=== PATIENT | female | born 2000 | race Two or more races ===

== ENCOUNTER 2025-02-14 17:39 | Emergency (ER) | payer OTHER ==
[~2025-02-14] VITALS: Ht 172.7 cm; Wt 77.0 kg
[2025-02-14 18:16] LABS: COVID AG,FIA SOURCE NASAL SWAB
[2025-02-14 18:57] LABS: INFLUENZA TYPE A NEGATIVE FOR TYPE A (NEGATIVE); INFLUENZA TYPE B NEGATIVE FOR TYPE B (NEGATIVE); SARS-COV2 (COVID) ANTIGEN,FIA Negative (Negative)
[2025-02-14] MEDS: ACETAMINOPHEN 500 MG TABLET PO ONE (19:05)
[2025-02-14] MEDS: IBUPROFEN 600 MG TABLET PO ONE (19:05)
[2025-02-14 20:11] VITALS: BP 113/76; PULSE 99; RESP 18; TEMP 99.1; O2SAT 100
[2025-02-14] MEDS: AMOXICILLIN TRIHYDRATE 250 MG CAPSULE PO ONE (20:18)
[2025-02-14] MEDS ORDERED: AMOX500C2 PO (20:22)
[2025-02-14] MEDS ORDERED: IBUP-1492 PO (20:22)
== END 2025-02-14 22:23 | disposition home or self-care (01) ==
LOC: EMS 17:45
DX: J02.9 Acute pharyngitis, unspecified (principal); R42 Dizziness and giddiness; F12.90 Cannabis use, unspecified, uncomplicated; Z90.49 Acquired absence of other specified parts of digestive tract; Z20.822 Contact with and (suspected) exposure to COVID-19
CPT/HCPCS: 87081; 87430; 87804; 99284; Z7502; Z7610